=== PATIENT | male | born 1975 | race Caucasian/White ===

== ENCOUNTER 2023-08-27 05:01 | Emergency (ER) | payer BC, SELFPAY ==
[2023-08-27 05:05] VITALS: BP 130/80; PULSE 94; TEMP 36.9; O2SAT 97; BMI 23.1
--- NOTE | 2023-08-27 05:17 | ECG_ITS ---
[facility] Test Date: 2023-08-27 Pat Name: GIAN HENNESSY Department: Room: - Gender: Male Computer [employer] In[employer]: : 1975 Requested By: Order Number: [id number] Reading MD: TK ROWLAND Measurements Intervals [place] Rate: 76 P: 73 GA: 136 QRS: 82 QRSD: 92 T: 75 QT: 374 QTc: 405 Interpretive Statements 1100 Sinus rhythm 9110 normal ECG No previous ECG available for comparison Electronically Signed On 08-27-2023 6:57:32 EDT by TK ROWLAND
[2023-08-27] MEDS: 0.9 % SODIUM CHLORIDE 1,000 ML 999 ML IV (05:34)
[2023-08-27 05:57] LABS: Basophils Absolute Auto 0.1 10^3/uL (0.0-0.1); Basophils Percent Auto 0.9 % (0.2-2.0); Eosinophils Absolute Auto 0.3 10^3/uL (0.0-0.7); Eosinophils Percent Auto 2.6 % (0.9-7.0); Hematocrit 48.3 % (42.0-54.0); Hemoglobin 16.2 g/dL (14.0-18.0); Immature Granulocytes Abs Auto 0.03 10^3/uL (0.00-0.03); Immature Granulocytes Pct Auto 0.3 % (0.0-0.5); Lymphocytes Absolute Auto 3.6 10^3/uL (1.2-3.8); Lymphocytes Percent Auto 37.1 % (20.5-60.0); Mean Corpuscular HGB Conc 33.5 g/dL (29.9-35.2); Mean Corpuscular Hemoglobin 31.3 pg (25.9-34.0); Mean Corpuscular Volume 93.2 fL (80.0-94.0); Mean Platelet Volume 11.1 fL (9.5-13.5); Monocytes Absolute Auto 0.6 10^3/uL (0.3-0.8); Monocytes Percent Auto 6.1 % (1.7-12.0); Neutrophils Absolute Auto 5.1 10^3/uL (1.4-6.5); Platelet Count 214 10^3/uL (150-450); Red Blood Count 5.18 10^6/uL (4.70-6.10); White Blood Count 9.6 10^3/uL (4.0-11.0)
[2023-08-27 06:13] LABS: Anion Gap 11.1; BUN Creatinine Ratio 17.4; Calcium 9.4 mg/dL (8.5-10.1); Carbon Dioxide 25.5 mmol/L (21.0-32.0); Chloride 105 mmol/L (98-107); Estimated GFR (African America >60 (>=60); Estimated GFR (Non-African Ame >60 (>=60); Glucose 96 mg/dL (74-106); Potassium 3.6 mmol/L (3.5-5.1); Sodium 138 mmol/L (136-145); Troponin I High Sensitivity 5.4 pg/mL (4.0-76.1)
--- NOTE | 2023-08-27 06:28 | ED_ITS ---
HPI HPI - General Adult General Chief complaint: Weakness Stated complaint: WEAKNESS Time Seen by Provider: 08/27/23 05:11 Source: patient Mode of arrival: walk-in History of Present Illness HPI narrative: 48-year-old male to the emergency department chief complaint of near syncope. 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 He began to have a headache, feels lightheaded and dizzy. He denies any chest pain or shortness of breath. After he removed himself from the environment and rested for a little bit he felt improved. He came to the emergency department for evaluation and work note. Related Data Allergies Allergy/AdvReac Type Severity Reaction Status Date / Time cephalexin [From Keflex] AdvReac Mild Hives Verified 08/27/23 05:11 Opioid HPI Opioid Management Most Recent Opioid Data: No Data to Display Review of Systems ROS Status of ROS 10 or more systems reviewed and unremark able except as noted in history and below Exam Narrative Exam Narrative: VITALS: I have reviewed the triage vital signs. GENERAL: Well developed, well appearing adult in no acute distress. NEURO: Alert and oriented. Moves all extremities. Face is symmetric and expressive. EYES: PERRL. No scleral icterus or conjunctival injection. No discharge. HENT: Normocephalic, atraumatic. Hearing is grossly intact. Nares grossly patent and without discharge. Mucous membranes moist. NECK: No JVD. Patient moves neck without restriction. CARDIO: Rhythm regular. Normal rate. No murmur, rub, or gallop. Pulses equal bilaterally in the upper and lower extremity. No lower extremity edema. PULM: Lungs clear to auscultation in all murphy. No wheezes, rales, or rhonchi. No conversational dyspnea. No splinting, stridor, or accessory muscle use. GI/: Abdomen is soft and non-tender. Normoactive bowel sounds. EXTREMITIES: Symmetric muscle bulk. No joint swelling. No clubbing, cyanosis, or deformity. SKIN: Warm and dry. Normal turgor. No rash or lesions appreciated. PSYCH: Mood, affect, and interaction is appropriate to the setting. Constitutional Vital Signs, click to edit/add: Last Vital Signs Temp 98.5 F 08/27/23 05:05 Pulse 94 H 08/27/23 05:05 Resp 16 08/27/23 05:05 BP 130/80 08/27/23 05:05 Pulse Ox 97 08/27/23 05:05 O2 Del Method Room Air 08/27/23 05:05 Course Vital Signs Vital signs: Vital Signs Temperature 98.5 F 08/27/23 05:05 Pulse Rate 94 H 08/27/23 05:05 Respiratory Rate 16 08/27/23 05:05 Blood Pressure 130/80 08/27/23 05:05 Pulse Oximetry 97 08/27/23 05:05 Oxygen Delivery Method Room Air 08/27/23 05:05 Temperature 98.5 F 08/27/23 05:05 Pulse Rate 94 H 08/27/23 05:05 Respiratory Rate 16 08/27/23 05:05 Blood Pressure 130/80 08/27/23 05:05 Pulse Oximetry 97 08/27/23 05:05 Oxygen Delivery Method Room Air 08/27/23 05:05 Medical Decision Making MDM Narrative Medical decision making narrative: Well-appearing 48-year-old male to the emergency department chief complaint of heat exhaustion. Vital stable, the patient is afebrile. 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 Symptoms appear consistent based on his report. Currently reports he is asymptomatic. Will give fluids, check basic labs and EKG. Patient agrees with this plan. Lab work is unremarkable. EKG without evidence of ischemia or arrhythmia. He remains well-appearing in no distress with normal vitals. Discussed heat exhaustion and strategies to avoid. Work note given. Return precautions discussed. All questions were answered. The patient was discharged home. Medical Records Medical records reviewed: Yes I reviewed the patient's medical records Lab Data Lab results reviewed: Yes I reviewed the patient's lab results Labs: Lab Results 08/27/23 Range/Units 05:10 WBC 9.6 (4.0-11.0) 10^3/uL RBC 5.18 (4.70-6.10) 10^6/uL Hgb 16.2 (14.0-18.0) g/dL Hct 48.3 (42.0-54.0) % MCV 93.2 (80.0-94.0) fL MCH 31.3 (25.9-34.0) pg MCHC 33.5 (29.9-35.2) g/dL RDW 13.0 (11.0-15.0) % Plt Count 214 (150-450) 10^3/uL MPV 11.1 (9.5-13.5) fL Neut % (Auto) 53.0 (43.0-75.0) % Lymph % (Auto) 37.1 (20.5-60.0) % [place] % (Auto) 6.1 (1.7-12.0) % Eos % (Auto) 2.6 (0.9-7.0) % Baso % (Auto) 0.9 (0.2-2.0) % Neut # (Auto) 5.1 (1.4-6.5) 10^3/uL Lymph # (Auto) 3.6 (1.2-3.8) 10^3/uL [place] # (Auto) 0.6 (0.3-0.8) 10^3/uL Eos # (Auto) 0.3 (0.0-0.7) 10^3/uL Baso # (Auto) 0.1 (0.0-0.1) 10^3/uL Abs Immat Gran (auto) 0.03 (0.00-0.03) 10^3/uL Imm/Tot Granulo (auto) 0.3 (0.0-0.5) % Sodium 138 (136-145) mmol/L Potassium 3.6 (3.5-5.1) mmol/L Chloride 105 (98-107) mmol/L Carbon Dioxide 25.5 (21.0-32.0) mmol/L Anion Gap 11.1 BUN 20.0 H (7.0-18.0) mg/dL Creatinine 1.15 (0.70-1.30) mg/dL Est GFR ( Amer) >60 (>=60) Est GFR (Non-Af Amer) >60 (>=60) BUN/Creatinine Ratio 17.4 Glucose 96 (74-106) mg/dL Calcium 9.4 (8.5-10.1) mg/dL Troponin I High Sens 5.4 (4.0-76.1) pg/mL ECG Data Attestation: I personally reviewed and interpreted this ECG as follows: (Normal sinus rhythm. No STEMI. Normal QTc) Discharge Plan Discharge Stand Alone Forms: Portal Instructions Chief Complaint: Weakness Clinical Impression: Heat exhaustion Patient Disposition: Home, Self-Care Time of Disposition Decision: 06:27 Condition: Good Mode of Transportation: Private Vehicle Print Language: Kosovan Instructions: Heat Exhaustion (ED) Additional Instructions: Call the office of your primary care doctor to arrange for follow-up within the above-stated timeframe. Follow-up with your primary care doctor about this ED visit. You should review your labs, imaging, and diagnoses from this ED visit with your primary care physician. There may be non-emergent findings that need further evaluation. If you were prescribed medications you should discuss possible side-effects and drug interactions with your pharmacist. Call 911 or go to the nearest Emergency Department if you develop any new or worsening symptoms. Seek immediate medical attention if you develop: worsening chest pain, new chest pain, nausea, vomiting, weakness, numbness, tingling, excessive sweating, shortness of breath, difficulty breathing, loss of motion in your arms or legs, or any new or worsening symptoms. Referrals: Physician,Non-Staff, MD [Primary Care Provider] - 1 week
== END 2023-08-27 06:36 | disposition home or self-care (01) ==
PROVIDERS: Emergency Provider Student in an Organized Health Care Education/Training Program
DX: T67.5XXA Heat exhaustion, unspecified, initial encounter (principal); X30.XXXA Exposure to excessive natural heat, initial encounter
CPT/HCPCS: 36415; 80048; 84484; 85025; 93005; 99284